=== PATIENT | female | born 1970 | race Caucasian/White ===

== ENCOUNTER 2017-10-06 18:32 | Inpatient (IN) | payer MEDICAID ==
[~2017-10-06] VITALS: Ht 167.6 cm; Wt 108.0 kg
[2017-10-06 18:56] VITALS: Ht 167.6 cm; Wt 108.0 kg
[2017-10-06 20:00] LABS: BASOPHIL % 0.3 % (0-2); PLATELET COUNT 200 x10^3mcL (130-400); RED CELL DISTRIBUTION WIDTH 13.5 % (11.5-14.5)
[2017-10-06 20:07] LABS: CALCIUM 9.3 mg/dL (8.5-10.1); CARBON DIOXIDE 26.5 mmol/L (21-32); CHLORIDE SERUM 102 mmol/L (98-107); CREATININE SERUM 0.9 mg/dL (0.6-1.0); GFR1 > 60 mL/min; GLUCOSE SERUM 89 mg/dL (74-106); POTASSIUM SERUM 3.6 mmol/L (3.5-5.1); SODIUM SERUM 137 mmol/L (136-145)
[2017-10-06 20:13] LABS: ALBUMIN 3.7 g/dL (3.4-5.0); ALKALINE PHOSPHATASE 101 U/L (46-116); ALT/SGPT 19 U/L (14-59); AST/SGOT 14 U/L (15-37); BILIRUBIN TOTAL 0.56 mg/dL (0.20-1.00); LIPASE 59 IU/L (73-393); TOTAL PROTEIN, SERUM 7.1 g/dL (6.4-8.2)
[2017-10-06 21:09] LABS: UA SPECIFIC GRAVITY <=1.005 (1.005-1.035); microscopic required? YES; urine erythrocyte 2+ (NEGATIVE)
[2017-10-07] VITALS (9 sets, daily range): BP systolic 82–111; BP diastolic 39–53
[2017-10-07 04:11] LABS: T3 TOTAL 1.35 ng/mL
[2017-10-07 04:40] LABS: FREE T4 1.05 ng/dL (0.76-1.46); FREE THYROXINE INDEX 2.8 ug/dL (1.4-4.5); T4(THYROXINE) 8.9 ug/dL (4.7-13.3)
[2017-10-07 06:44] LABS: BASOPHIL % 0.4 % (0-2); PLATELET COUNT 181 x10^3mcL (130-400); RED CELL DISTRIBUTION WIDTH 13.4 % (11.5-14.5)
[2017-10-07 06:52] LABS: CARBON DIOXIDE 26.6 mmol/L (21-32); CHLORIDE SERUM 107 mmol/L (98-107); CHOLESTEROL 161 mg/dL (<200); CHOLESTEROL/HDL RATIO 3.8; GFR1 > 60 mL/min; GLUCOSE SERUM 91 mg/dL (74-106); HDL CHOLESTEROL 42 mg/dL (40-60); SODIUM SERUM 139 mmol/L (136-145); TRIGLYCERIDES 117 mg/dL (<150)
[2017-10-07 13:11] LABS: AMPHETAMINE QUAL UR NONE DETECTED (See below)
[2017-10-08 02:42] VITALS: BP 92/55
[2017-10-08 06:11] VITALS: BP 95/60
[2017-10-08 07:16] LABS: CALCIUM 7.4 mg/dL (8.5-10.1); CARBON DIOXIDE 25.5 mmol/L (21-32); CHLORIDE SERUM 109 mmol/L (98-107); CREATININE SERUM 0.8 mg/dL (0.6-1.0); GFR1 > 60 mL/min; GLUCOSE SERUM 80 mg/dL (74-106); PHOSPHOROUS 2.9 mg/dL (2.5-4.9); POTASSIUM SERUM 3.9 mmol/L (3.5-5.1); SODIUM SERUM 142 mmol/L (136-145)
[2017-10-08 07:42] LABS: BASOPHIL % 0.5 % (0-2); PLATELET COUNT 167 x10^3mcL (130-400); RED CELL DISTRIBUTION WIDTH 13.6 % (11.5-14.5)
[2017-10-08 09:32] VITALS: BP 101/46
[2017-10-08] MEDS ORDERED: APAP/HYDROCODON1 T13 PO (10:07)
[2017-10-08 10:51] VITALS: BP 95/60
== END 2017-10-08 15:17 | disposition home or self-care (01) | DRG 517 ==
LOC: ED 18:32 → DU 10-07 01:38
PROVIDERS: Emergency Medicine; Family Medicine; Obstetrics & Gynecology
PROC: 0UDB7ZZ Extraction of Endometrium, Via Natural or Artificial Opening (ICD-10-PCS; principal; 2017-10-07 18:00)
DX: N83.209 Unspecified ovarian cyst, unspecified side (principal); E66.9 Obesity, unspecified; N73.9 Female pelvic inflammatory disease, unspecified; N95.0 Postmenopausal bleeding; D50.0 Iron deficiency anemia secondary to blood loss (chronic); N85.00 Endometrial hyperplasia, unspecified; Z68.38 Body mass index [BMI] 38.0-38.9, adult
CPT/HCPCS: 83880; 84439; 94150; C1758; J1885; J2250; J2270; J2405; J3490; J7030; J7120; Q0092; Q9967

== ENCOUNTER 2017-12-24 06:05 | Day surgery (SDC) | payer OTHER ==
[~2017-12-24] VITALS: Ht 167.6 cm; Wt 106.1 kg
[~2017-12-24 06:05] MED LIST: APAP/HYDROCODON1 T13 PO
[2017-12-24 06:14] VITALS: BP 132/72
[2017-12-24 13:50] VITALS: BP 109/66
== END 2017-12-24 14:00 | disposition home or self-care (01) ==
LOC: DS 06:05 → OR 07:30 → DS 07:30 → OR 08:30 → DS 14:00
PROVIDERS: Obstetrics & Gynecology
PROC: 0U5B8ZZ Destruction of Endometrium, Via Natural or Artificial Opening Endoscopic (ICD-10-PCS; principal; 2017-12-24 07:30)
DX: N92.1 Excessive and frequent menstruation with irregular cycle (principal); E66.9 Obesity, unspecified
CPT/HCPCS: J0690; J1170; J2405; J2704; J3010; J3490; J7120

== ENCOUNTER 2018-09-18 01:58 | Emergency (ER) | payer OTHER ==
[~2018-09-18] VITALS: Ht 167.6 cm; Wt 94.0 kg
[2018-09-18 02:04] VITALS: Ht 167.6 cm; Wt 94.0 kg
[2018-09-18 03:17] VITALS: BP 128/75
== END 2018-09-18 03:17 | disposition home or self-care (01) ==
LOC: ED 01:58
DX: S93.401A Sprain of unspecified ligament of right ankle, initial encounter (principal); Z91.010 Allergy to peanuts; W22.8XXA Striking against or struck by other objects, initial encounter; Y93.89 Activity, other specified; Y92.89 Other specified places as the place of occurrence of the external cause; Y99.8 Other external cause status
CPT/HCPCS: Q0092

== ENCOUNTER 2019-04-23 20:20 | Emergency (ER) | payer OTHER ==
[~2019-04-23] VITALS: Ht 167.6 cm; Wt 101.6 kg
[2019-04-23 20:30] VITALS: Ht 167.6 cm; Wt 101.6 kg
[2019-04-23 23:28] VITALS: BP 121/53
== END 2019-04-23 23:28 | disposition home or self-care (01) ==
LOC: ED 20:20
DX: J02.9 Acute pharyngitis, unspecified (principal); J40 Bronchitis, not specified as acute or chronic; E06.3 Autoimmune thyroiditis; Z91.030 Bee allergy status; Z91.018 Allergy to other foods
CPT/HCPCS: 87804; J1100

== ENCOUNTER 2019-06-18 20:07 | Emergency (ER) | payer OTHER ==
[~2019-06-18] VITALS: Ht 167.6 cm; Wt 104.0 kg
[2019-06-18 20:37] VITALS: Ht 167.6 cm; Wt 104.0 kg
[2019-06-19 02:48] VITALS: BP 143/72
== END 2019-06-19 02:48 | disposition home or self-care (01) ==
LOC: ED 20:07
DX: R51 Headache (principal); Z91.018 Allergy to other foods
CPT/HCPCS: J0780; J1885

== ENCOUNTER 2020-04-27 18:23 | Emergency (ER) | payer OTHER ==
[~2020-04-27] VITALS: Ht 167.6 cm; Wt 103.0 kg
[2020-04-27 18:58] VITALS: BP 126/76; Ht 167.6 cm; Wt 103.0 kg
[2020-04-27 19:54] LABS: BASOPHIL % 1.3 % (0.2-1.3); PLATELET COUNT 221 x10^3mcL (179-408); RED CELL DISTRIBUTION WIDTH 13.5 % (12.3-17.7)
[2020-04-27 20:21] LABS: CHLORIDE SERUM 104 mmol/L (98-107); CREATININE SERUM 0.9 mg/dL (0.6-1.0); GFR1 > 60 mL/min; POTASSIUM SERUM 3.6 mmol/L (3.5-5.1); SODIUM SERUM 141 mmol/L (136-145)
[2020-04-27 20:38] LABS: ALKALINE PHOSPHATASE 121 U/L (46-116); ALT/SGPT 35 U/L (14-59); AST/SGOT 17 U/L (15-37); CALCIUM 9.1 mg/dL (8.5-10.1); CARBON DIOXIDE 30.2 mmol/L (21-32); GLUCOSE SERUM 99 mg/dL (74-106); LIPASE 113 IU/L (73-393); TOTAL PROTEIN, SERUM 7.2 g/dL (6.4-8.2)
== END 2020-04-27 21:42 | disposition home or self-care (01) ==
LOC: ED 18:23
PROVIDERS: Emergency Medicine
DX: R07.89 Other chest pain (principal); Z91.018 Allergy to other foods